=== PATIENT | male | born 1975 | race Two or more races ===

== ENCOUNTER → 2017-01-11 10:39 | Emergency (ER) | payer BC ==
[~2017-01-11 10:39] MED LIST: Iohexol 350* (CONTRAST) 500 ML MDV IV ONE; LORazepam TAB(*) 1 MG PO ONE
[2017-01-11 13:07] LABS: Hematocrit 46 % (42-52); Hemoglobin 15.8 g/dl (14.0-18.0); Mean Corpuscular HGB Conc 34 g/dl (31-36); Mean Corpuscular Hemoglobin 29 pg (27-31); Mean Corpuscular Volume 86 fL (80-94); Mean Platelet Volume 9 um3 (7.4-10.4); Red Blood Count 5.37 10^6/ul (4.0-5.4); Red Cell Distribution Width 13 % (10.5-15); White Blood Count 7.9 10^3/ul (3.5-10.8)
[2017-01-11 13:26] LABS: Albumin 4.2 g/dL (3.2-5.2); Calcium 9.6 mg/dL (8.6-10.3); EGFR African American 117.8 (>60); EGFR Non-African American 91.6 (>60); Globulin 3.3 g/dL (2-4); Potassium 3.9 mmol/L (3.5-5.0); Total Bilirubin 0.5 mg/dL (0.2-1.0); Total Protein 7.5 g/dL (6.4-8.9); Troponin I 0.01 ng/mL (<0.04)
--- NOTE | 2017-01-11 14:10 | RAD ---
Indication: Headache, LEFT side facial numbness; word finding issues. Comparison: September 07, 2012 CT. Technique: Noncontrast CT vertex of skull through foramen magnum. Report: The sulci, ventricles, and basal cisterns are normal for age. [place] matter white matter differentiation is preserved without evidence for edema. No intra or extra axial hemorrhage, mass, or fluid collection detected. Unremarkable visualized orbital contents. Unremarkable calvarium and skull base. Unremarkable scalp. The visualized paranasal sinuses and mastoid air spaces are clear. IMPRESSION: Negative unenhanced head CT.
--- NOTE | 2017-01-11 14:13 | RAD ---
CPT II: CPT II Codes: 3100F INDICATION: Left-sided facial numbness and word finding issues. COMPARISON: CT of the brain dated September 07, 2012 as well as same day CT of the brain TECHNIQUE: A CT angiogram of the head and neck was performed with 80 cc of Omnipaque 350. Contiguous axial sections were obtained from the thoracic inlet through the [place]. Images were reconstructed in the sagittal, coronal planes and in a 3-D volume rendered format. The distal cervical internal carotid artery diameter is used as the denominater for stenosis measurement. CTA NECK: The common and internal carotid arteries are patent without hemodynamically significant stenosis. Right: Immediately below the carotid bifurcation the common carotid artery measures 8 mm in short axis diameter and the proximal most portion of the internal carotid artery also measures 8 mm yielding a 0% degree stenosis. Left: Immediately below the carotid bifurcation the common carotid artery measures just under 8 mm in short axis diameter. Beyond the bifurcation the internal carotid artery measures 8 mm in diameter yielding a 0% degree stenosis. The vertebral arteries are patent without gross abnormality. CTA of the brain: The internal carotid, anterior and middle cerebral arteries appear are patent without high grade stenosis or occlusion. The vertebral, basilar and posterior cerebral arteries appear patent without high grade stenosis or occlusion. The [place] is complete with bilateral posterior communicating arteries identified. No focal luminal filling defect, aneurysm or vascular malformation is seen. IMPRESSION: Normal CT angiography of the head and neck.
[2017-01-11 15:06] LABS: Urine Bilirubin Negative (Negative); Urine Glucose Negative (Negative); Urine Nitrite Negative (Negative)
[2017-01-11 16:37] VITALS: BP 126/67
--- NOTE | 2017-01-11 17:12 | RAD ---
Indication: Headache and hypertensive Image sequences: Sagittal and axial T1, axial T2, FLAIR, diffusion and susceptibility weighted images of the brain were obtained. Ventricular structures are midline. No midline shift is noted. The extra-axial spaces are unremarkable. There is no evidence of intracranial mass or hemorrhage. No restriction of diffusion is identified. The FLAIR images demonstrates no evidence of vasogenic edema. Susceptibility weighted images demonstrates no evidence of susceptibility artifact to suggest hemorrhage. Orbits are unremarkable. Posterior fossa including the brainstem and cerebellum are unremarkable. No cerebellopontine angle masses are noted. Mastoid air cells and paranasal sinuses are otherwise unremarkable. IMPRESSION: No intracranial lesion is identified. No evidence of hemorrhage is noted.
--- NOTE | 2017-01-11 17:19 | ED ---
Chino Chavez Nilda, scribed for Jessie Trujillo MD on 01/11/17 at 1152 . Complex/Multi-Sys Presentation - HPI Summary HPI Summary: This patient is a 41 year old M BIBA to [facility] with a chief complaint of a possible panic attack s/p a work related issue at 1000 today. Patient reports anxiety, dizziness, nausea, severe headache, neck pain, and numbness in legs and hands. Symptoms aggravated by recent stress and alleviated by nothing. - History Of Current Complaint Chief Complaint: EDPsychosocial Time Seen by Provider: 01/11/17 10:41 Hx Obtained From: Patient Onset/Duration: Sudden Onset, Lasting Minutes, Still Present Timing: Constant Severity Currently: Severe Location: Pain At: - headache and neck pain Aggravating Factor(s): recent stress Alleviating Factor(s): nothing Associated Signs And Symptoms: Positive: Other - neck pain, anxiety, dizziness, nausea, headache, and numbness in legs and hands.. Negative: Recent Trauma - Allergies/Home Medications Allergies/Adverse Reactions: Allergies Allergy/AdvReac Type Severity Reaction Status Date / Time No Known Allergies Allergy Verified 01/01/16 15:59 PMH/Surg Hx/FS Hx/Imm Hx Endocrine/Hematology History: Denies: Hx Diabetes, Hx Thyroid Disease Cardiovascular History: Reports: Hx Hypercholesterolemia Denies: Hx Hypertension - "higher than normal", Hx Peripheral Vascular Disease Respiratory History: Denies: Hx Asthma, Hx Chronic Obstructive Pulmonary Disease (COPD) GI History: Denies: Hx Ulcer Musculoskeletal History: Denies: Hx Arthritis, Hx Osteoporosis Sensory History: Denies: Hx Cataracts, Hx Contacts or Glasses, Hx Glaucoma Opthamlomology History: Denies: Hx Cataracts, Hx Contacts or Glasses, Hx Glaucoma Neurological History: Reports: Hx Headaches Denies: Hx Seizures, Hx Transient Ischemic Attacks (TIA) Psychiatric History: Denies: Hx Anxiety, Hx Depression - Surgical History Surgery Procedure, Year, and Place: RIGHT ACL repair 2007, RIGHT MENISCUS REPAIR 2009 Infectious Disease History: No Infectious Disease History: Denies: Hx Hepatitis, Hx Human Immunodeficiency Virus (HIV), History Other Infectious Disease, Traveled Outside the [place] in Last 30 Days - Family History Known Family History: Negative: Cardiac Disease, Hypertension, Diabetes - Social History Alcohol Use: Occasionally Hx Substance Use: No Substance Use Type: Reports: None Hx Tobacco Use: No Smoking Status (MU): Never Smoked Tobacco Review of Systems Positive: Nausea Positive: Other - neck pain Positive: Headache - severe, Numbness - fingertips Psychological: Other - dizziness; possible panic attack Positive: Anxious All Other Systems Reviewed And Are Negative: Yes Physical Exam Triage Information Reviewed: Yes Vital Signs On Initial Exam: Initial Vitals Temp Pulse Resp BP Pulse Ox 98.3 F 88 16 150/94 99 01/11/17 10:40 01/11/17 10:40 01/11/17 10:40 01/11/17 10:40 01/11/17 10:40 Vital Signs Reviewed: Yes Appearance: Positive: Well-Appearing, No Pain Distress Skin: Positive: Warm, Skin Color Reflects Adequate Perfusion, Dry Eyes: Positive: EOMI, MARII ENT: Positive: Pharynx normal, TMs normal Neck: Positive: Supple, Nontender Respiratory/Lung Sounds: Positive: Clear to Auscultation, Breath Sounds Present. Negative: Rales, Rhonchi, Wheezes Cardiovascular: Positive: RRR, Other - no gallop. Negative: Murmur, Rub Abdomen Description: Positive: Nontender, Soft, Other: - no rebound. Negative: Distended, Guarding Bowel Sounds: Positive: Present Musculoskeletal: Positive: Strength/ROM Intact. Negative: Edema Left, Edema Right Neurological: Positive: Sensory/Motor Intact, Alert, Oriented to Person Place, Time, CN Intact II-III Psychiatric: Positive: Affect/Mood Appropriate Diagnostics - Vital Signs Vital Signs Temp Pulse Resp BP Pulse Ox 01/11/17 11:18 16 01/11/17 10:40 98.3 F 88 16 150/94 99 - Laboratory Lab Results: Lab Results 01/11/17 01/11/17 01/11/17 Range/Units 12:52 12:52 12:52 WBC 7.9 (3.5-10.8) 10^3/ul RBC 5.37 (4.0-5.4) 10^6/ul Hgb 15.8 (14.0-18.0) g/dl Hct 46 (42-52) % MCV 86 (80-94) fL MCH 29 (27-31) pg MCHC 34 (31-36) g/dl RDW 13 (10.5-15) % Plt Count 215 (150-450) 10^3/ul MPV 9 (7.4-10.4) um3 Neut % (Auto) 71.5 (38-83) % Lymph % (Auto) 19.4 L (25-47) % [place] % (Auto) 7.4 (1-9) % Eos % (Auto) 1.3 (0-6) % Baso % (Auto) 0.4 (0-2) % Absolute Neuts (auto) 5.6 (1.5-7.7) 10^3/ul Absolute Lymphs (auto) 1.5 (1.0-4.8) 10^3/ul Absolute Monos (auto) 0.6 (0-0.8) 10^3/ul Absolute Eos (auto) 0.1 (0-0.6) 10^3/ul Absolute Basos (auto) 0 (0-0.2) 10^3/ul Absolute Nucleated RBC 0.01 10^3/ul Nucleated RBC % 0.1 INR (Anticoag Therapy) 0.94 (0.89-1.11) Sodium 135 (133-145) mmol/L Potassium 3.9 (3.5-5.0) mmol/L Chloride 104 (101-111) mmol/L Carbon Dioxide 26 (22-32) mmol/L Anion Gap 5 (2-11) mmol/L BUN 12 (6-24) mg/dL Creatinine 0.92 (0.67-1.17) mg/dL Est GFR ( Amer) 117.8 (>60) Est GFR (Non-Af Amer) 91.6 (>60) BUN/Creatinine Ratio 13.0 (8-20) Glucose 93 (70-100) mg/dL Lactic Acid (0.5-2.0) mmol/L Calcium 9.6 (8.6-10.3) mg/dL Total Bilirubin 0.50 (0.2-1.0) mg/dL AST 19 (13-39) U/L ALT 33 (7-52) U/L Alkaline Phosphatase 76 (34-104) U/L Troponin I 0.01 (<0.04) ng/mL Total Protein 7.5 (6.4-8.9) g/dL Albumin 4.2 (3.2-5.2) g/dL Globulin 3.3 (2-4) g/dL Albumin/Globulin Ratio 1.3 (1-3) Urine Color Urine Appearance Urine pH (5-9) Ur Specific [place] (1.010-1.030) Urine Protein (Negative) Urine Ketones (Negative) Urine Blood (Negative) Urine Nitrate (Negative) Urine Bilirubin (Negative) Urine Urobilinogen (Negative) Ur Leukocyte Esterase (Negative) Urine Glucose (Negative) 01/11/17 01/11/17 Range/Units 12:52 14:35 WBC (3.5-10.8) 10^3/ul RBC (4.0-5.4) 10^6/ul Hgb (14.0-18.0) g/dl Hct (42-52) % MCV (80-94) fL MCH (27-31) pg MCHC (31-36) g/dl RDW (10.5-15) % Plt Count (150-450) 10^3/ul MPV (7.4-10.4) um3 Neut % (Auto) (38-83) % Lymph % (Auto) (25-47) % [place] % (Auto) (1-9) % Eos % (Auto) (0-6) % Baso % (Auto) (0-2) % Absolute Neuts (auto) (1.5-7.7) 10^3/ul Absolute Lymphs (auto) (1.0-4.8) 10^3/ul Absolute Monos (auto) (0-0.8) 10^3/ul Absolute Eos (auto) (0-0.6) 10^3/ul Absolute Basos (auto) (0-0.2) 10^3/ul Absolute Nucleated RBC 10^3/ul Nucleated RBC % INR (Anticoag Therapy) (0.89-1.11) Sodium (133-145) mmol/L Potassium (3.5-5.0) mmol/L Chloride (101-111) mmol/L Carbon Dioxide (22-32) mmol/L Anion Gap (2-11) mmol/L BUN (6-24) mg/dL Creatinine (0.67-1.17) mg/dL Est GFR ( Amer) (>60) Est GFR (Non-Af Amer) (>60) BUN/Creatinine Ratio (8-20) Glucose (70-100) mg/dL Lactic Acid 1.0 (0.5-2.0) mmol/L Calcium (8.6-10.3) mg/dL Total Bilirubin (0.2-1.0) mg/dL AST (13-39) U/L ALT (7-52) U/L Alkaline Phosphatase (34-104) U/L Troponin I (<0.04) ng/mL Total Protein (6.4-8.9) g/dL Albumin (3.2-5.2) g/dL Globulin (2-4) g/dL Albumin/Globulin Ratio (1-3) Urine Color Yellow Urine Appearance Clear Urine pH 7.0 (5-9) Ur Specific [place] 1.009 L (1.010-1.030) Urine Protein Negative (Negative) Urine Ketones Negative (Negative) Urine Blood Negative (Negative) Urine Nitrate Negative (Negative) Urine Bilirubin Negative (Negative) Urine Urobilinogen Negative (Negative) Ur Leukocyte Esterase Negative (Negative) Urine Glucose Negative (Negative) Result Diagrams: 01/11/17 12:52 01/11/17 12:52 Lab Statement: Any lab studies that have been ordered have been reviewed, and results considered in the medical decision making process. - CT Brain CT Interpretation Completed By: Radiologist - Negative unenhanced head CT. ED physician has reviewed this report and agrees. Head/Neck CT Interpretation Completed By: Radiologist - Normal CT angiography of the head and neck. ED Physician reviewed this report and agrees. - EKG 1057 Cardiac Rate: NL - 80 bpm EKG Rhythm: Sinus Rhythm ST Segment: Normal EKG Interpretation: No Q - Additional Comments Diagnostic Additional Comments: MRI brain, per radiologist, reveals no intracranial lesion is identified. No evidence of hemorrhage is noted. ED physician has reviewed this report and agrees. Complex Multi-Symp Course/Dx Course Of Treatment: pt with some word finding issues head ache and neck pain after panic attack. case run by dr. Washington with ct, cta and mri done all normal. pt given some ativan to go home with to deal with his difficult work situation - Diagnoses Provider Diagnoses: Panic attack - Physician Notifications Discussed Care Of Patient With: Marlo Washington Time Discussed With Above Provider: 15:00 Instructed by Provider To: Other - recommend MRI. Discharge - Discharge Plan Condition: Stable Disposition: HOME Prescriptions: LORazepam TAB(*) [Ativan 1 MG TAB (*)] 1 mg PO Q8H PRN #7 tab MDD 3 PRN Reason: Agitation/Anxiety Patient Education Materials: Panic Attack (ED) Referrals: [facility] [Outside] - 3 Days Additional Instructions: RETURN TO THE EMERGENCY DEPARTMENT FOR CHANGING OR WORSENING SYMPTOMS. The documentation as recorded by the Chino galindo Nilda accurately reflects the service I personally performed and the decisions made by me, Jessie Trujillo MD.
== END | disposition home or self-care (01) ==
LOC: ED 10:39
DX: R11.0 Nausea (principal); R51 Headache; R42 Dizziness and giddiness; F41.0 Panic disorder [episodic paroxysmal anxiety]
CPT/HCPCS: 36415; 70450; 70496; 70498; 70551; 80053; 81003; 83605; 84484; 85025; 85610; 93005; 99283; A9270-GY; Q9967

== ENCOUNTER 2018-10-20 10:30 | Emergency (ER) | payer BC ==
--- NOTE | 2018-10-20 11:02 | ED ---
GI/ HPI - HPI Summary HPI Summary: The pt is a 43 yr old male with a history of diverticulosis presenting to [facility] c/o rectal bleeding with pain beginning a month ago with recent worsening. He started noticing rectal bleeding with bowel movements about a month ago, which is when he was initially diagnosed with diverticulosis through CT at [facility]. He mentions that the bleeding is significant and noticeable whenever he uses the bathroom, and he states he feels like there is active bleeding now. He states that he was recently diagnosed with diverticulosis and was put on abx one month ago when he hadabd pain, which has now resolved. He also reports fatigue, and constipation, but denies diarrhea, nausea, and vomiting. He has hx of HTN and diverticulosis. - History of Current Complaint Chief Complaint: EDGIBleed Time Seen by Provider: 10/20/18 10:48 Stated Complaint: BLOOD IN STOOL Hx Obtained From: Patient Onset/Duration: Started Days Ago, Still Present Timing: Intermittent, Lasting Days Severity: Mild Current Severity: Mild Pain Intensity: 3 Location of Pain: Rectal Associated Signs and Symptoms: Positive: Rectal Pain, Constipation, Blood w/ Stool, Lightheadedness, Other: - Positive - Fatigue. Negative: Nausea, Vomiting , Diarrhea, Fever, Abdominal Pain Aggravating Factor(s): Bowel Movement Alleviating Factor(s): Nothing - Allergy/Home Medications Allergies/Adverse Reactions: Allergies Allergy/AdvReac Type Severity Reaction Status Date / Time No Known Allergies Allergy Verified 01/01/16 15:59 PMH/Surg Hx/FS Hx/Imm Hx Endocrine/Hematology History: Denies: Hx Diabetes, Hx Thyroid Disease Cardiovascular History: Reports: Hx Hypercholesterolemia, Hx Hypertension - "higher than normal" Denies: Hx Pacemaker/ICD, Hx Peripheral Vascular Disease Respiratory History: Denies: Hx Asthma, Hx Chronic Obstructive Pulmonary Disease (COPD) GI History: Reports: Hx Diverticulosis Denies: Hx Ulcer Musculoskeletal History: Denies: Hx Arthritis, Hx Osteoporosis Sensory History: Denies: Hx Cataracts, Hx Contacts or Glasses, Hx Glaucoma, Hx Hearing Aid Opthamlomology History: Denies: Hx Cataracts, Hx Contacts or Glasses, Hx Glaucoma Neurological History: Reports: Hx Headaches Denies: Hx Seizures, Hx Transient Ischemic Attacks (TIA) Psychiatric History: Denies: Hx Anxiety, Hx Depression, Hx Panic Disorder - Surgical History Surgery Procedure, Year, and Place: RIGHT ACL repair 2007, RIGHT MENISCUS REPAIR 2009 Infectious Disease History: No Infectious Disease History: Denies: Hx Hepatitis, Hx Human Immunodeficiency Virus (HIV), History Other Infectious Disease, Traveled Outside the [place] in Last 30 Days - Family History Known Family History: Positive: Other - Hemorrhoids. Negative: Cardiac Disease, Hypertension, Diabetes - Social History Alcohol Use: Occasionally Hx Substance Use: No Substance Use Type: Reports: None Hx Tobacco Use: No Smoking Status (MU): Never Smoked Tobacco Review of Systems Positive: Fatigue. Negative: Fever Positive: Other - Positive - rectal pain and blood w/stool, constipation. Negative: Abdominal Pain, Vomiting, Diarrhea, Nausea Neurological: Other - Positive - lightheadededness All Other Systems Reviewed And Are Negative: Yes Physical Exam - Summary Physical Exam Summary: Constitutional: Well-developed, Well-nourished, Alert. (-) Distressed Skin: Warm, Dry HENT: Normocephalic; Atraumatic Eyes: Conjunctiva normal Neck: Musculoskeletal ROM normal neck. Cardio: Rhythm regular, rate normal, Heart sounds normal; Intact distal pulses; Radial pulses are 2+ and symmetric. (-) Murmur Pulmonary/Chest wall: Effort normal. (-) Respiratory distress, (-) Wheezes, (-) Rales Abd: Soft, (-) tenderness, (-) Distension, (-) Guarding, (-) Rebound Rectal: No external hemorrhoids, no gross blood. Musculoskeletal: (-) Edema Lymph: (-) Cervical adenopathy Neuro: Alert, Oriented x3 Psych: Mood and affect Normal Triage Information Reviewed: Yes Vital Signs On Initial Exam: Initial Vitals Temp Pulse Resp BP Pulse Ox 97.8 F 88 20 158/90 99 10/20/18 10:32 10/20/18 10:32 10/20/18 10:32 10/20/18 10:32 10/20/18 10:32 Vital Signs Reviewed: Yes Diagnostics - Vital Signs Vital Signs Temp Pulse Resp BP Pulse Ox 10/20/18 10:32 97.8 F 88 20 158/90 99 - Laboratory Result Diagrams: 10/20/18 11:07 10/20/18 11:07 Lab Statement: Any lab studies that have been ordered have been reviewed, and results considered in the medical decision making process. Re-Evaluation - Re-Evaluation First Eval Re-Evaluation Time: 11:25 Comment: Pt was given rectal exam. No external hemorrhoids, no gross blood. Second Eval Re-Evaluation Time: 12:00 Comment: Lab notable for stable hemoglobin, no white count. Soft abdominal exam. Patient could possibly have internal hemorrhoids versus diverticular bleed however given chronicity of symptoms and will appearance the patient with stable vital signs and labs no emergent need for further workup in the emergency department. Patient will be given a stool softener as well as GI follow-up and return for worsening symptoms. Discharge was discussed with pt. GIGU Course/Dx - Course Course Of Treatment: 43-year-old male with a history of diverticulosis who presents with rectal bleeding for one month. - Exam well-appearing male no acute distress rectal exam shows : Plan for labs, pending labs possible CT. - Differential includes external or internal hemorrhoids, mass lesion causing bleeding, diverticular bleed, AVM, or upper GI bleed. Given chronicy of symptoms low suspicion for acute process. Most likely internal hemorrhoids versus slow diverticular bleed. D/w [facility] where patient had CT for diverticulosis w/o e/o diverticulitis on 09/17 - Diagnoses Provider Diagnoses: Rectal bleeding - Physician Notifications Discussed Care Of Patient With: Jones ED Time Discussed With Above Provider: 11:30 Instructed by Provider To: Other - I spoke with ED at [facility] concerning CT results for the pt one month ago. Discharge - Sign-Out/Discharge Documenting (check all that apply): Patient Departure - Discharge Patient Received Moderate/Deep Sedation with Procedure: No - Discharge Plan Condition: Stable Disposition: HOME Prescriptions: Docusate CAP* [Colace Cap*] 100 mg PO BID 30 Days #60 cap Docusate CAP* [Colace Cap*] 100 mg PO BID 30 Days #60 cap Patient Education Materials: Rectal Bleeding (ED), High Fiber Diet (ED) Referrals: Cleo Dennison MD [Primary Care Provider] - 3 Days Hubert Mosley MD [Medical Doctor] - 3 Days Additional Instructions: You were seen in the emergency department for rectal bleeding. Your labs showed a stable hemoglobin. No evidence of infection. Please follow- up with gastroenterology If any studies were not completed at the time of discharge you will be called with the relevant results. Please follow up with your primary care doctor in next 2-3 days and return to emergency department for worsening bleeding, abdominal pain, fevers or concerning symptoms. - Billing Disposition and Condition Condition: STABLE Disposition: Home - Attestation Statements Document Initiated by Magalys: Yes Documenting Scribe: Sharif Parry Provider For Whom Magalys is Documenting (Include Credential): Dr. Connie Mcdonald MD Scribe Attestation: ISharif, scribed for Dr. Connie Mcdonald MD on 10/20/18 at 1313. Scribe Documentation Reviewed: Yes Provider Attestation: The documentation as recorded by the Sharif galindo accurately reflects the service I personally performed and the decisions made by me, Dr. Connie Mcdonald MD Status of Scribe Document: Viewed
[2018-10-20 11:13] LABS: ABS Basophils 0.1 10^3/ul (0-0.2); ABS Eosinophils 0.3 10^3/ul (0-0.6); ABS Lymphocytes 1.9 10^3/ul (1.0-4.8); ABS Monocytes 0.5 10^3/ul (0-0.8); ABS Neutrophils 4.3 10^3/ul (1.5-7.7); Eosinophil % 4.3 %; Hematocrit 44 % (42-52); Hemoglobin 15.2 g/dL (14.0-18.0); Lymphocyte % 27.5 %; Mean Corpuscular HGB Conc 35 g/dL (31-36); Mean Corpuscular Hemoglobin 29 pg (27-31); Mean Corpuscular Volume 84 fL (80-94); Mean Platelet Volume 8.6 fL (7.4-10.4); Nucleated Red Blood Cells % 0.1; Platelet Count 192 10^3/uL (150-450); Red Blood Count 5.18 10^6 /uL (4.18-5.48); Red Cell Distribution Width 14 % (10-15); White Blood Count 7.1 10^3/uL (3.5-10.8)
[2018-10-20 11:29] LABS: Albumin 4.2 g/dL (3.2-5.2); Albumin/Globulin Ratio 1.2 (1-3); Calcium 9.5 mg/dL (8.6-10.3); EGFR Non-African American 88.4 (>60); Globulin 3.4 g/dL (2-4); Potassium 3.7 mmol/L (3.5-5.0); Total Bilirubin 0.5 mg/dL (0.2-1.0); Total Protein 7.6 g/dL (6.4-8.9)
[2018-10-20 12:50] VITALS: BP 147/85
== END 2018-10-20 12:48 | disposition home or self-care (01) ==
LOC: ED 10:30
DX: K62.5 Hemorrhage of anus and rectum (principal); E78.00 Pure hypercholesterolemia, unspecified; I10 Essential (primary) hypertension
CPT/HCPCS: 36415; 80053; 82270; 85025; 99282